=== PATIENT | female | born 1950 | race Caucasian/White ===

== ENCOUNTER 2022-09-12 17:13 | Emergency (ER) | payer MEDICARE ==
[2022-09-12] MEDS ORDERED: Sodium Chloride 0.9% 10 ML Syringe FLUSH PRN (17:37)
[2022-09-12 18:01] LABS: HEMATOCRIT 37.9 % (37.0-47.0); MEAN CORPUSCULAR HEMOGLOBIN 31.2 pg (27.0-32.0); MEAN CORPUSCULAR HGB CONC 34.3 g/dL (31.0-35.0); MEAN PLATELET VOLUME 9.4 fL (6.0-10.0); RED BLOOD CELL COUNT 4.17 M/uL (3.80-5.80); RED CELL DISTRIBUTION WIDTH 11.7 % (11.0-16.0); WHITE BLOOD CELL COUNT,WBC 4.7 K/uL (4.0-11.0)
[2022-09-12 18:10] VITALS: BP 195/91; PULSE 82
[2022-09-12 18:21] LABS: A/G RATIO 1.2 (0.8-2.0); ALANINE AMINOTRANSFERASE,ALT 85 U/L (12-78); ALBUMIN 3.8 g/dL (3.4-5.0); ALKALINE PHOSPHATASE 72 U/L (46-116); ASPARTATE AMNIOTRANSFERASE,AST 51 U/L (15-37); BILIRUBIN TOTAL 0.6 mg/dL (0.0-1.0); BLOOD UREA NITROGEN,BUN 15 mg/dL (8-26); BUN/CREATININE RATIO 18.8 (6-25); CALCIUM 9.4 mg/dL (8.5-10.1); CARBON DIOXIDE,CO2 29.5 mmol/L (21.0-32.0); CHLORIDE,CL 100 mmol/L (98-107); ESTIMATED GFR 77 mL/min (>60); GLUCOSE RANDOM 135 mg/dL (74-100); MAGNESIUM 1.5 mg/dL (1.8-2.4); SODIUM,NA 141 mmol/L (136-145); TROPONIN I HIGH SENSITIVITY 11.7 pg/ml (<=60.4)
[2022-09-12 18:27] LABS: ANION GAP 14.4 mmol/L (5.0-15.0); POTASSIUM,K 2.9 mmol/L (3.5-5.1)
[2022-09-12] MEDS: GI Cocktail Oral Solution 30 ML PO ONE (19:05)
[2022-09-12] MEDS: Potassium Chloride 20 MEQ Tab.ER PO ONE (19:05)
[2022-09-12] MEDS: NS + KCl 20mEq/L 1,000 ML IV SCH (19:45)
== END 2022-09-12 21:43 | disposition home or self-care (01) ==
LOC: LB.ED 17:13
DX: K29.00 Acute gastritis without bleeding (principal); E87.6 Hypokalemia
CPT/HCPCS: 36415; 71045; 80053; 83735; 84484; 85027; 93005; 96365; 96366; 99284; A9270; J3480

== ENCOUNTER 2023-07-10 16:32 | Emergency (ER) | payer MEDICARE ==
[2023-07-10] MEDS: Sodium Chloride 0.9% 10 ML Syringe FLUSH PRN (18:05)
[2023-07-10 18:13] LABS: HEMOGLOBIN 13.3 g/dL (11.5-16.5); MEAN CORPUSCULAR HEMOGLOBIN 30.6 pg (27.0-32.0); MEAN CORPUSCULAR HGB CONC 34.1 g/dL (31.0-35.0); MEAN PLATELET VOLUME 9.5 fL (6.0-10.0); RED BLOOD CELL COUNT 4.34 M/uL (3.80-5.80); WHITE BLOOD CELL COUNT,WBC 5.9 K/uL (4.0-11.0)
[2023-07-10] MEDS: Sodium Chloride 0.9% 1,000 ML IV SCH ×2 (18:18→20:18)
[2023-07-10 18:33] LABS: ANION GAP 11.7 mmol/L (5.0-15.0); BUN/CREATININE RATIO 15.9 (6-25); CALCIUM 9.4 mg/dL (8.5-10.1); CARBON DIOXIDE,CO2 28.8 mmol/L (21.0-32.0); CREATININE 0.82 mg/dL (0.55-1.02); EST CRCL DRUG DOSING (CG) 64.1 mL/min; MAGNESIUM 1.3 mg/dL (1.8-2.4); PHOSPHORUS 3.1 mg/dL (2.5-4.9); POTASSIUM,K 3.5 mmol/L (3.5-5.1)
[2023-07-10] MEDS: Losartan 25 MG Tab PO SCH (19:20)
[2023-07-10] MEDS: Labetalol 100 MG/20 ML MDV IVPUSH ONE (19:35)
[2023-07-10] MEDS ORDERED: Sodium Chloride 0.9% 1,000 ML IV SCH (19:45)
[2023-07-10] MEDS: Losartan 25 MG Tab ONE (19:52)
[2023-07-10] MEDS: Labetalol 100 MG/20 ML MDV ONE (19:53)
[2023-07-10] MEDS: Metoprolol Succinate 100 MG Tab.ER ONE (19:53)
== END 2023-07-10 22:10 | disposition home or self-care (01) ==
LOC: LB.ED 16:32
DX: E86.0 Dehydration (principal); E83.42 Hypomagnesemia; I10 Essential (primary) hypertension; K21.9 Gastro-esophageal reflux disease without esophagitis; Z79.899 Other long term (current) drug therapy; Z86.19 Personal history of other infectious and parasitic diseases
CPT/HCPCS: 36415; 80048; 83735; 84100; 84484; 85027; 93005; 96361; 96365; 96375; 99284; A9270; J1921; J3475; J3490; J7030

== ENCOUNTER 2024-04-07 09:10 | Emergency (ER) | payer MEDICARE ==
[2024-04-07] MEDS: Ketorolac 30 MG/ML SDV IM ONE (10:17)
== END 2024-04-07 10:22 | disposition home or self-care (01) ==
LOC: LB.ED 09:10
DX: M43.6 Torticollis (principal); I10 Essential (primary) hypertension; K21.9 Gastro-esophageal reflux disease without esophagitis; E66.9 Obesity, unspecified; Z68.35 Body mass index [BMI] 35.0-35.9, adult; Z79.899 Other long term (current) drug therapy
CPT/HCPCS: 96372; 99283; J1885